=== PATIENT | female | born 1980 | race American Indian/Alaskan Native ===

== ENCOUNTER 2019-07-19 21:20 | Emergency (ER) | payer OTHER ==
[2019-07-19 21:34] VITALS: BP 117/66
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
[2019-07-19] MEDS ORDERED: ACETAMINOPHEN 500 MG TAB ONE (22:09)
[2019-07-19] MEDS ORDERED: ACETAMINOPHEN 500 MG TAB PO ONE (22:10)
--- NOTE | 2019-07-19 22:23 | XRay Report ---
EXAMINATION: Thoracic spine radiograph series, 2 views, 07/19/2019 CLINICAL INFORMATION: Back pain. No history of trauma COMPARISON: None. FINDINGS: There is gross normal alignment of the visualized thoracic vertebral bodies. Vertebral body height and intervertebral disc spaces are well maintained. No significant bony degenerative changes are noted. IMPRESSION: No radiographic evidence of acute bony abnormality of the thoracic spine. Signer Name: Amina Anderson MD Signed: 07/19/2019 10:19 PM Workstation Name: [id number]
[2019-07-19] MEDS ORDERED: traMADol 50 MG TAB PO ONE (22:28)
[2019-07-19] MEDS ORDERED: traMADol 50 MG TAB ONE (22:32)
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
== END 2019-07-19 23:32 | disposition home or self-care (01) ==
LOC: ED 21:20
DX: M54.6 Pain in thoracic spine (principal); J45.909 Unspecified asthma, uncomplicated; Z98.51 Tubal ligation status; Z88.8 Allergy status to other drugs, medicaments and biological substances; Z79.899 Other long term (current) drug therapy; E89.0 Postprocedural hypothyroidism; V89.2XXA Person injured in unspecified motor-vehicle accident, traffic, initial encounter; Y93.89 Activity, other specified; Y92.488 Other paved roadways as the place of occurrence of the external cause; Y99.8 Other external cause status
CPT/HCPCS: 72070; 99283